=== PATIENT | female | born 1955 | race Caucasian/White ===

== ENCOUNTER 2019-03-28 08:49 | Outpatient (REF) | payer MEDICAID, SELFPAY ==
[2019-03-28 20:34] LABS: Anion Gap 7.5 mmol/L (3-11); BUN 19 mg/dL (7-18); CO2 30.5 mmol/L (21.0-32.0); CREATININE 0.78 mg/dL (0.55-1.02); Calcium 9.9 mg/dL (8.5-10.1); Calculated LDL 213 mg/dL; Chloride 103 mmol/L (98-107); Cholesterol 311 mg/dL (<200); Glucose 142 mg/dL (74-106); HDL Cholesterol 55 mg/dL (40-60); Potassium 4.7 mmol/L (3.5-5.1); Sodium 141 mmol/L (136-145); Triglyceride 219 mg/dL (<150)
== END 2019-03-28 09:09 ==
LOC: NCHCN 08:49
PROVIDERS: PCP Nurse Practitioner Family; Visit Provider Nurse Practitioner Family
DX: E11.9 Type 2 diabetes mellitus without complications (principal); E78.5 Hyperlipidemia, unspecified
CPT/HCPCS: 80048; 80061

== ENCOUNTER 2020-07-30 16:17 | Outpatient (REF) | payer MEDICAID, SELFPAY ==
[2020-07-30 16:20] LABS: Anion Gap 9.3 mmol/L (3-11); BUN 23 mg/dL (7-18); CO2 27.7 mmol/L (21.0-32.0); CREATININE 0.8 mg/dL (0.55-1.02); Calcium 9.5 mg/dL (8.5-10.1); Calculated LDL 213 mg/dL (<100); Chloride 107 mmol/L (98-107); Cholesterol 301 mg/dL (<200); Glucose 157 mg/dL (74-106); HDL Cholesterol 66 mg/dL (40-60); Sodium 144 mmol/L (136-145); Triglyceride 113 mg/dL (<150)
== END 2020-07-30 16:18 | disposition home or self-care (01) ==
LOC: NCHCN 16:17
PROVIDERS: PCP Nurse Practitioner Family; Visit Provider Nurse Practitioner Family
DX: E78.5 Hyperlipidemia, unspecified (principal); E11.9 Type 2 diabetes mellitus without complications
CPT/HCPCS: 80048; 80061

== ENCOUNTER 2021-08-04 15:09 | Outpatient (REF) | payer MEDICAID, SELFPAY ==
[2021-08-04 17:10] LABS: Hemoglobin A1C 8.3 % (<5.7)
[2021-08-04 17:23] LABS: Calculated LDL 214 mg/dL (<100); Cholesterol 312 mg/dL (<200); HDL Cholesterol 55 mg/dL (40-60); Triglyceride 219 mg/dL (<150)
[2021-08-06 10:30] LABS: Hepatitis C Ab w Rflx HCV PCR Negative (Negative)
[2021-08-06 10:34] LABS: HIV-1/2 Ag & Ab Screen Negative (Negative)
== END 2021-08-04 15:10 | disposition home or self-care (01) ==
LOC: NCHCN 15:09
PROVIDERS: PCP Nurse Practitioner Family; Visit Provider Nurse Practitioner Family
DX: E11.9 Type 2 diabetes mellitus without complications (principal); E78.5 Hyperlipidemia, unspecified; Z11.4 Encounter for screening for human immunodeficiency virus [HIV]; Z11.59 Encounter for screening for other viral diseases
CPT/HCPCS: 80061; 86803; 87389; 83036

== ENCOUNTER 2022-08-05 13:19 | Outpatient (REF) | payer MEDICAID, SELFPAY ==
--- NOTE | 2022-08-05 08:30 | PAPFT_PTH ---
PATIENT: Sheryl Gallegos LOC: [facility]#:[id number] AGE/SX: 66/F ROOM: RE08/05/[address]: Angie Britton : 1955 BED: DIS: 08/05/2022 SPEC #: [id number] RECD: 08/05/22 17:37 STATUS: LAUREN RERayo #: [id number] REGINO: 08/05/22 08:[address]: Angie Britton DEPT[facility] Cytology RECD BY: Hali Alejandro Tissues: 1 - CX/ENDOCX FOR PAP SMEARS Procedures: PAP THIN PREP/[facility] Screening HPV DNA PROBE Comments: [id number]
[2022-08-05 16:22] LABS: Calculated LDL 210 mg/dL (<100); Cholesterol 304 mg/dL (<200); HDL Cholesterol 62 mg/dL (40-60); Triglyceride 160 mg/dL (<150)
[2022-08-05 17:09] LABS: Hemoglobin A1C 7.6 % (<5.7)
== END 2022-08-05 13:20 | disposition home or self-care (01) ==
LOC: NCHCN 13:19
PROVIDERS: PCP Nurse Practitioner Family; Visit Provider Nurse Practitioner Family
DX: E78.5 Hyperlipidemia, unspecified (principal); E11.9 Type 2 diabetes mellitus without complications; Z12.4 Encounter for screening for malignant neoplasm of cervix; Z11.51 Encounter for screening for human papillomavirus (HPV)
CPT/HCPCS: 80061; 88142; 83036; 87624

== ENCOUNTER 2023-06-02 10:58 | Outpatient (REF) | payer MEDICARE, SELFPAY ==
[2023-06-02 15:30] LABS: HCT 41.2 % (36.0-46.0); MCH 34.1 pg (27.0-33.0); MCHC 36.4 % (32.0-36.0); MCV 94 fL (80-95); MPV 11.1 fL (8.0-11.0); Platelet Count 232 10^3/uL (130-400); RDW 13.3 % (11.7-14.6); RDW-SD 43.5 fL; WBC 6.59 10^3/uL (4.4-10.8)
[2023-06-02 15:50] LABS: Hemoglobin A1C 7.3 % (<5.7)
[2023-06-02 16:11] LABS: ALT 39 U/L (14-59); AST 18 U/L (15-37); Alkaline Phosphatase 63 U/L (46-116); Anion Gap 7.9 mmol/L (3-11); BUN 14 mg/dL (7-18); Bilirubin, Total 0.3 mg/dL (0.2-1.0); CO2 30.1 mmol/L (21.0-32.0); CREATININE 0.8 mg/dL (0.55-1.02); Chloride 104 mmol/L (98-107); Estimated GFR 81.72 (mL/min/1.73m2); Glucose 157 mg/dL (74-106); HDL Cholesterol 54 mg/dL (40-60); LDL CHOLESTEROL 166 mg/dL (<100); Potassium 4.8 mmol/L (3.5-5.1); Sodium 142 mmol/L (136-145); TSH (W/Ref FT4) 1.14 uIU/mL (0.36-3.74); Total Protein 7.3 g/dL (6.4-8.2); Vitamin B12 525 pg/mL (193-986); Vitamin D 25 Total 22.9 ng/mL (30-100)
== END 2023-06-02 10:59 | disposition home or self-care (01) ==
LOC: NCHCN 10:58
PROVIDERS: PCP Nurse Practitioner Family; Visit Provider Nurse Practitioner Family
DX: R41.89 Other symptoms and signs involving cognitive functions and awareness (principal)
CPT/HCPCS: 80053; 82306; 83721; 85027; 82607; 83036; 83718; 84443

== ENCOUNTER → 2023-07-18 02:34 | Outpatient (CLI) | payer MEDICARE, MEDICAID, SELFPAY ==
--- NOTE | 2023-07-18 | DI.MRI_ITS ---
Exam(s) MR BRAIN WO EXAM: MR BRAIN WO CLINICAL HISTORY: R41.89 Other symptoms and signs involving cognitive functions and awareness TECHNIQUE: Multiplanar multisequence MRI of the brain was performed. COMPARISON: No exams were available for comparison FINDINGS: CEREBRAL PARENCHYMA: There is no evidence of intracranial hemorrhage, mass effect, or shift of midline structures. There are no extra-axial fluid collections. Ventricles are not enlarged or shifted. Size of the ventricle s is commensurate with the size of the overlying cortical sulci. There is no significant focal signal abnormality in the cerebellar hemispheres nor within the harvey, m idbrain, and thalami. There are multiple foci of FLAIR bright signal abnormality in the bilateral Katelyn ventricular white ma tter, measuring up to 8 mm size. These are not associated with hemorrhage, surrounding edema nor res tricted diffusion to suggest acute lacunar infarcts. There is no significant focal signal abnormality evident on diffusion imaging to suggest acute ischem ic event. Amount of involutional change is slightly prominent for this age group. PITUITARY GLAND: No mass nor parasellar abnormality. No obvious abnormality in the cavernous sinuses. FLOW VOIDS: The expected flow void are noted. No evidence of obvious aneurysm nor obvious vascular ma lformation. PARANASAL SINUSES: The visualized paranasal sinuses appear unremarkable. No obvious finding ORBITS: No obvious findings. IMPRESSION: 1. There is slightly prominent involutional change. Size of the ventricles, however, is commensurat e with the size of the overlying cortical sulci, with no evidence of obvious normal pressure hydrocep halus. 2. There are multiple sub cm foci of FLAIR bright signal abnormality in the bilateral white matter c onsistent with chronic small vessel disease. No evidence of acute lacunar nor territorial infarct. DATA REPOSITORY:
== END ==
PROVIDERS: PCP Nurse Practitioner Family; Visit Provider Nurse Practitioner Family
DX: R41.89 Other symptoms and signs involving cognitive functions and awareness (principal); I67.89 Other cerebrovascular disease
CPT/HCPCS: 70551

== ENCOUNTER 2023-08-08 12:18 | Outpatient (REF) | payer MEDICARE, SELFPAY ==
[2023-08-08 15:36] LABS: ALT 33 U/L (14-59); AST 17 U/L (15-37); HDL Cholesterol 72 mg/dL (40-60); LDL CHOLESTEROL 83 mg/dL (<100)
[2023-08-08 16:16] LABS: Creatine Kinase 58 U/L (26-192)
[2023-08-08 16:42] LABS: Hemoglobin A1C 7.3 % (<5.7)
== END 2023-08-08 12:19 | disposition home or self-care (01) ==
LOC: NCHCN 12:18
PROVIDERS: PCP Nurse Practitioner Family; Visit Provider Nurse Practitioner Family
DX: E78.5 Hyperlipidemia, unspecified (principal); E11.9 Type 2 diabetes mellitus without complications
CPT/HCPCS: 82550; 83721; 83036; 83718; 84450; 84460

== ENCOUNTER → 2023-08-16 07:59 | Outpatient (BNVA) | payer MEDICARE, MEDICAID, SELFPAY | PROVIDERS: PCP Nurse Practitioner Family; Referring Provider Nurse Practitioner Family; Visit Provider Nurse Practitioner Adult Health | DX: R41.89 Other symptoms and signs involving cognitive functions and awareness (principal); E11.9 Type 2 diabetes mellitus without complications | CPT/HCPCS: 99205 ==

== ENCOUNTER → 2023-08-23 13:27 | Outpatient (BNVA) | payer MEDICARE, MEDICAID, SELFPAY | PROVIDERS: PCP Nurse Practitioner Family; Referring Provider Nurse Practitioner Family; Visit Provider Nurse Practitioner Adult Health | DX: G30.9 Alzheimer's disease, unspecified (principal); F02.80 Dementia in other diseases classified elsewhere, unspecified severity, without behavioral disturbance, psychotic disturbance, mood disturbance, and anxiety | CPT/HCPCS: 99215 ==

== ENCOUNTER → 2023-08-26 00:07 | Outpatient (CLI) | payer MEDICARE, SELFPAY ==
--- NOTE | 2023-08-26 | DI.DEXA_ITS ---
Exam(s) XR DEXA BONE DENSITY W/WO ALICE EXAM: XR DEXA BONE DENSITY W/WO ALICE CLINICAL HISTORY: Asymptomatic menopausal state, Z78.0,SCREENING FOR OSTEOPOROSIS TECHNIQUE: COMPARISON: No exams were available for comparison FINDINGS: Lateral Spine Image: Unremarkable. No compression deformities identified. Left hip: Total T-Score: -0.2 Total Z-Score: 1.1 T- and Z-scores: Within normal limits. Lumbar Spine: Total T-Score: 2.6 Total Z-Score: 4.4 T- and Z-scores: Within normal limits. IMPRESSION: No evidence of osteoporosis.
== END ==
PROVIDERS: PCP Nurse Practitioner Family; Visit Provider Nurse Practitioner Family
DX: Z78.0 Asymptomatic menopausal state (principal); Z13.820 Encounter for screening for osteoporosis
CPT/HCPCS: 77080

== ENCOUNTER → 2023-10-19 10:47 | Outpatient (BNVA) | payer MEDICARE, MEDICAID, SELFPAY | PROVIDERS: PCP Nurse Practitioner Family; Referring Provider Nurse Practitioner Family; Visit Provider Nurse Practitioner Adult Health | DX: G30.9 Alzheimer's disease, unspecified (principal); F02.80 Dementia in other diseases classified elsewhere, unspecified severity, without behavioral disturbance, psychotic disturbance, mood disturbance, and anxiety | CPT/HCPCS: 99214 ==

== ENCOUNTER 2023-12-22 16:45 | Outpatient (REF) | payer MEDICARE, MEDICAID, SELFPAY | END 2023-12-22 16:46 | disposition home or self-care (01) | LOC: NCHCN 16:45 | PROVIDERS: PCP Nurse Practitioner Family; Visit Provider Nurse Practitioner Family | DX: N76.2 Acute vulvitis (principal) | CPT/HCPCS: 87480; 87510; 87660 ==

== ENCOUNTER → 2024-02-21 08:49 | Outpatient (BNVA) | payer MEDICARE, MEDICAID, SELFPAY | PROVIDERS: PCP Nurse Practitioner Family; Referring Provider Nurse Practitioner Family; Visit Provider Nurse Practitioner Adult Health | DX: G30.9 Alzheimer's disease, unspecified (principal); F02.80 Dementia in other diseases classified elsewhere, unspecified severity, without behavioral disturbance, psychotic disturbance, mood disturbance, and anxiety; R63.4 Abnormal weight loss | CPT/HCPCS: 99214 ==

== ENCOUNTER → 2024-08-20 08:55 | Outpatient (BNVA) | payer MEDICARE, MEDICAID, SELFPAY | PROVIDERS: PCP Nurse Practitioner Family; Referring Provider Nurse Practitioner Family; Visit Provider Nurse Practitioner Adult Health | DX: G30.9 Alzheimer's disease, unspecified (principal); F02.80 Dementia in other diseases classified elsewhere, unspecified severity, without behavioral disturbance, psychotic disturbance, mood disturbance, and anxiety; E11.9 Type 2 diabetes mellitus without complications | CPT/HCPCS: 99213 ==

== ENCOUNTER 2024-10-01 18:09 | Outpatient (REF) | payer MEDICARE, MEDICAID, SELFPAY ==
[2024-10-01 16:20] LABS: COMMENT (LAB VIEW ONLY) 28.77 mg/dL; Microalb ug/mg Crea 11.1 ug/mg Cr
== END 2024-10-01 18:10 | disposition home or self-care (01) ==
LOC: NCHCN 18:09
PROVIDERS: PCP Nurse Practitioner Family; Visit Provider Nurse Practitioner Family
DX: E11.9 Type 2 diabetes mellitus without complications (principal)
CPT/HCPCS: 82043; 82570

== ENCOUNTER 2025-01-01 08:09 | Outpatient (REF) | payer MEDICARE, MEDICAID, SELFPAY ==
[2025-01-01 18:03] LABS: ALT 31 U/L (14-59); AST 31 U/L (15-37); Albumin 4.0 g/dL (3.4-5.0); Alkaline Phosphatase 45 U/L (46-116); Anion Gap 9.7 mmol/L (3-11); BUN 18 mg/dL (7-18); Bilirubin, Total 0.5 mg/dL (0.2-1.0); CO2 29.3 mmol/L (21.0-32.0); Calcium 10.0 mg/dL (8.5-10.1); Calculated LDL 60 mg/dL (<100); Chloride 100 mmol/L (98-107); Cholesterol 146 mg/dL (<200); Estimated GFR 94.73 (mL/min/1.73m2); Glucose 245 mg/dL (74-106); HDL Cholesterol 59 mg/dL (>or=50); Potassium 3.8 mmol/L (3.5-5.1); Sodium 139 mmol/L (136-145); Total Protein 6.8 g/dL (6.4-8.2); Triglyceride 139 mg/dL (<150)
[2025-01-01 18:06] LABS: Hemoglobin A1C 6.6 % (<5.7)
== END 2025-01-01 08:10 | disposition home or self-care (01) ==
LOC: NCHCN 08:09
PROVIDERS: PCP Nurse Practitioner Family; Visit Provider Nurse Practitioner Family
DX: E78.5 Hyperlipidemia, unspecified (principal); E11.9 Type 2 diabetes mellitus without complications
CPT/HCPCS: 80053; 80061; 83036